=== PATIENT | male | born 1970 | race Caucasian/White ===

== ENCOUNTER 2022-04-13 14:34 | Emergency (ER) | payer BC, SELFPAY ==
--- NOTE | ~2022-04-13 | XR_ITS ---
EXAM: XR knee LT 3V DATE: 04/13/2022 14:54 HISTORY: fall, left anterior knee pain below patella . COMPARISON: None available. FINDINGS: Normal mineralization. No fracture or dislocation. No lytic or blastic lesion. Moderate tr icompartmental osteoarthritic change. No erosion or periosteal change. Small volume joint fluid. IMPRESSION: No acute osseous finding the left knee. Reviewed, dictated and finalized at location K.
--- NOTE | ~2022-04-13 | XR_ITS ---
EXAM: XR ankle RT min 3V DATE: 04/13/2022 14:54 HISTORY: fall, right lateral ankle pain . COMPARISON: None available. FINDINGS: Normal mineralization. No acute fracture or dislocation. Old fracture fragments versus deg enerative loose bodies distal to the malleoli. No lytic or blastic lesion. Degenerative tibiotalar ch deonna. Plantar enthesopathy No erosion or periosteal change. Ankle joint effusion. IMPRESSION: No acute osseous finding in the right ankle. Reviewed, dictated and finalized at location K.
[2022-04-13 14:43] VITALS: BP 144/95; PULSE 64; RESP 18; TEMP 35.9; O2SAT 99
--- NOTE | 2022-04-13 14:50 | ED.LOWEXIN ---
HPI - Extremity Injury (Lower) General Chief Complaint: Extremity Injury, Lower Stated Complaint: L KNEE/R ANKLE INJURY Time Seen by Provider: 04/13/22 14:50 Source: patient, family and RN notes reviewed History of Present Illness HPI Narrative: Patient is a 51-year-old male who presents the urgent care with complaints of right ankle pain and swelling and left knee pain. Patient states that the sidewalk was uneven and he fell approximately 1 hour ago landing onto the leftknee. Patient states that he has an abrasion to the knee but he is more concerned with the pain on weightbearing. Patient cleansed and bandaged the abrasions to the left knee. Patient has not taken anything [id number] for pain. States that the swelling of the right ankle has gone down minimally since the incident. Patient denies hitting his head or any loss of consciousness. No other acute complaints. No acute distress noted. Patient aware of the plan of care. Some parts of this dictation were generated by voice recognition software and may contain typographical and/or grammatical inaccuracies. Related Data Home Medications Medication Instructions Recorded Confirmed allopurinol 300 mg tablet 300 mg PO DAILY 10/22/20 12/13/21 atenolol 50 mg tablet tablet 04/13/22 diclofenac sodium 75 mg tablet PO 04/13/22 tablet,delayed release Allergies Allergy/AdvReac Type Severity Reaction Status Date / Time morphine Allergy Unknown RASH Verified 12/13/21 10:15 Review of Systems Review of Systems: CONSTITUTIONAL: Denies fever, chills, or sweats. EYES: Denies visual changes, redness, or discharge. ENT: Denies rhinorrhea, congestion, sore throat, or otalgia. CARDIOVASCULAR: Denies chest pain, palpitations, or edema. RESPIRATORY: Denies cough or dyspnea. GASTROINTESTINAL: Denies abdominal pain, nausea, vomiting, or diarrhea. GENITOURINARY: Denies dysuria or hematuria. SKIN: Reports of abrasion to the left knee MUSCULOSKELETAL: Reports of right ankle pain and swelling and left knee pain. NEUROLOGIC: Denies headache, numbness, or weakness. All other systems reviewed are negative, except as documented in HPI. [facility] Social History Social History Smoking status: Never smoker Second hand tobacco smoke exposure: No Alcohol intake: never Substance use: never Substance use type: does not use Comments At the time of my signature, I reviewed and agree with the nursing past medical, surgical, social, and family history. There is no relevant family history pertinent to the patient complaint. Exam Narrative: GENERAL: This is a well-nourished, well-developed patient, in no apparent distress. HEAD: normocephalic, atraumatic. EYES: PERRL. Sclera clear/white. Vision is grossly intact. EARS: External ears normal NOSE: External nose normal with no obvious nasal discharge, nares without redness, no rhinorrhea. THROAT: Mucous membranes moist NECK: Neck supple CARDIOVASCULAR: Regular rate and rhythm without murmurs, gallops, or rubs. RESPIRATORY: Clear to auscultation. Breath sounds equal bilaterally. No wheezes, rales, or rhonchi. NEURO: awake, alert, and oriented to person, place and time. There were no obvious focal neurologic abnormalities. SKIN: Abrasion covering the anterior left knee EXTREMITIES: Moderate edema noted to the lateral right malleolus with moderate tenderness. Positive strong right pedal pulse with capillary refill less than 2 seconds. Range of motion not tested due to pain and swelling. Mild edema and moderate tenderness to the left tibial tuberosity without ecchymosis or obvious deformity. Positive strong pulse with capillary refill less than 2 seconds. Range of motion to left lower extremity/knee not tested due to pain. Difficulty on weightbearing due to pain. Course Course Level of Care: Express Care Visit Vital Signs Vital signs: Vital Signs Temperature 96.6 F L 06/08
== END 2022-04-13 15:19 | disposition home or self-care (01) ==
PROVIDERS: Emergency Provider Nurse Practitioner Family; PCP Internal Medicine Endocrinology, Diabetes & Metabolism
DX: S93.401A Sprain of unspecified ligament of right ankle, initial encounter (principal); S96.911A Strain of unspecified muscle and tendon at ankle and foot level, right foot, initial encounter; W19.XXXA Unspecified fall, initial encounter; S80.02XA Contusion of left knee, initial encounter; I10 Essential (primary) hypertension
CPT/HCPCS: 73562; 73610; 99214; G0463

== ENCOUNTER 2025-07-11 14:05 | Outpatient (CLI) | payer BC, SELFPAY ==
--- NOTE | ~2025-07-11 | XR_ITS ---
EXAM/ PROCEDURE: XR hand LT min 3V - 07/11/2025 14:22 CDT HISTORY: 54 years old Male with Sprain of L thumb COMPARISON: None available TECHNIQUE: Three view(s) FINDINGS/ IMPRESSION: There are no fractures or dislocations.Joint space narrowing, subchondral sclerosis, subchondral cyst formation and osteophyte formation, compatible with mild osteoarthritis. Reviewed, dictated and finalized at location N.
== END 2025-07-11 14:06 | disposition home or self-care (01) ==
LOC: MICIMG 14:07
PROVIDERS: PCP Internal Medicine Endocrinology, Diabetes & Metabolism; Visit Provider Chiropractor Rehabilitation
DX: S63.602A Unspecified sprain of left thumb, initial encounter (principal); X58.XXXA Exposure to other specified factors, initial encounter
CPT/HCPCS: 73130